=== PATIENT | female | born 2000 | race Caucasian/White ===

== ENCOUNTER 2022-03-27 08:37 | Inpatient (IN) | payer BC ==
--- OUTSIDE RECORDS SUMMARY | 2022-03-27 08:40 | XMS REPORT | Continuity of Care Document ---
:2000 Author Organization [facility] t Address [address] [place] [address] Care Team Providers Name Role Phone Pcp, Patient Does Not Have A Primary Care Physician [id number] VIRAJ ALFRED Attending Clinician Unavailable LAB90 Attending Clinician Unavailable RUKHSANA BERRY Attending Clinician Unavailable LILIANE CLEMONS Attending Clinician Unavailable Rukhsana Berry MD Attending Clinician [phone] Nurse, Adc Pob Immunization Attending Clinician Unavailable David Isidro DO Attending Clinician Only, Adc Pob2 Test Attending Clinician Unavailable DAVID ISIDRO Attending Clinician Unavailable CHAPARRITA MARNIQUEZ Attending Clinician Unavailable TIMOTEO BELL Attending Clinician Unavailable MARYAM DAVIS Attending Clinician Unavailable Payers Payer Name Policy Type Policy Number Effective Date Expiration Date S ro BCBS 2 [id number] 2021 00:00:00 Problems Condition Condition Condition Status Onset Resolution Last Treating Co mments Source Name Details Category Date Date Treatment Clinician Date Acquired Acquired Disease Active 2021-03 Kelse y hypothyroi hypothyroi 2-07 Se ybold dism dism 00:00: - 00 Externa l Class 1 Class 1 Disease Active Roseline obesity obesity 12-10 Seybold due to due to 00:00: - excess excess 00 Externa calories calories l without without serious serious comorbidit comorbidit y with y with body mass body mass index index (BMI) of (BMI) of 33.0 to 33.0 to 33.9 in 33.9 in adult adult Other Other Disease Active Roseline fatigue fatigue 12-10 Seybold 00:00: - 00 Externa l Well adult Well adult Disease Active K elsey exam exam 12-10 Seybold 00:00: - 00 Externa l Exercise Exercise Disease Active Kelse y induced induced 12-10 Seybold bronchospa bronchospa 00:00: - sm sm 00 Externa l No known No known Disease Kelse y active active Seybold problems problems Allergies, Adverse Reactions, Alerts Allergy Allergy Status Severity Reaction(s) Onset Inactive Treating Comm ents Source Name Type Date Date Clinician NO KNOWN Drug Active Univers ALLERGIE Class ity of S [facility] Social History Social Habit Start Date Stop Date Quantity Comments Source Exposure to Not sure Roseline mcdonnell SARS-CoV-2 (event) History SDOH Roseline rowell Alcohol Frequency - Exter nal History SDOH Roseline rowell Alcohol Std - External Drinks History SDOH Roseline rowell Alcohol Binge - External Alcohol intake 2022-02-23 2022-02-23 Current drinker of Ankit Tarango 00:00:00 00:00:00 alcohol (finding) - Exter nal Tobacco use and 2021-12-10 2021-12-10 Smokeless tobacco Ankit guerrapedro Guerraarlen exposure 00:00:00 00:00:00 non-user - External Alcohol Comment 2021-12-10 2021-12-10 occasionally Roseline Tarango 00:00:00 00:00:00 - External Education 2021-12-10 2021-12-10 16 Roseline Tarango 00:00:00 00:00:00 - External Sex [birth year] At [birth year] Roseline wadearlen 00:00:00 00:00:00 - External Smoking Status Start Date Stop Date Source Unknown if ever smoked [facility] Never smoked tobacco Roseline Seyb old - External Medications Ordered Filled Start Stop Current Ordering Indication Dosage Frequency Signature Comments Components Source Medication Medication Date Date Medication? Clinician (SIG) Name Name Levothyroxi Yes [id number] 50ug Take 1 Roseline ne Sodium 9-26 tablet (50 Seyb old 50 MCG oral 00:00: mcg total) - Tablet 00 by mouth Externa daily l Albuterol Yes [id number] 2{puff} Q.25D Inhale 2 Roseline HFA 108 (90 9-23 puffs into Se ybold Base) 00:00: the lungs - MCG/ACT IN 00 every 6 Ecd a AERS hours as l needed for wheezing Albuterol Yes [id number] 2{puff} Q.25D Inhale 2 Roseline HFA 108 (90 9-23 puffs into Se ybold Base) 00:00: the lungs - MCG/ACT IN 00 every 6 Ecd a AERS hours as l needed for wheezing Guaifenesin 2020- No [id number] 1200mg Take 2 Roseline (Mucinex) 07-15 tablets Seybol d 600 MG oral 00:00: 00:00 (1,200 mg Tablet 12 00 :00 total) by Hour mouth 2 Sustained times Release daily Benzonatate 2020- No [id number] 100mg Q.[id number] Take 1 Roseline (Tessalon 07-15- [id number] capsule ybarlen Bustamante) 100 00:00: 00:00 3D (100 mg MG oral 00 :00 total) by Capsule mouth 3 times daily as needed for cough Cetirizine 2020- No [id number] 10mg Take 1 Roseline (ZyrTEC 07-15 tablet (10 Seybo ld Allergy) 10 00:00: 00:00 mg total) MG oral 00 :00 by mouth Tablet daily methylPREDN 2020- No [id number] Take 1 kulwinder Roseline ISolone 4 07-15 by mouth Seybo ld MG oral 00:00: 00:00 See Admin Tablet 00 :00 Instructio Therapy ns Use as Pack directed Immunizations Ordered Immunization Filled Immunization Date Status Commen ts Source Name Name Influenza Virus 2021-12-03 Completed Roseline Arcos ybold - Vaccine, age 4 00:00:00 External months and up Influenza Virus 2021-12-03 Completed Roseline Arcos ybold - Vaccine, age 4 00:00:00 External months and up Covid-19 Vaccine 2020-12-15 Completed Roseline Zamorano eybold - (My Digital Life), Mrna-lnp, 00:00:00 Exter nal Nick Protein, Pf, 30mcg/0.3ml,IM Covid-19 Vaccine 2020-12-15 Completed Roseline S eybold - ([employer] Digital [employer]), Mrna-lnp, 00:00:00 Exter nal Nick Protein, Pf, 30mcg/0.3ml,IM Covid-19 Vaccine 2020-12-15 Completed Roseline Zamorano eybold (My Digital [employer]), Mrna-lnp, 00:00:00 Nick Protein, Pf, 30mcg/0.3ml,IM SARS-COV-2 COVID-19 2020-12-15 [facility] PFIZER VACCINE 00:00:00 [facility] Covid-19 Vaccine 2020-04-23 Completed Roseline Zamorano eybold - (My Digital Life), Mrna-lnp, 00:00:00 Exter nal Nick Protein, Pf, 30mcg/0.3ml,IM Covid-19 Vaccine 2020-04-23 Completed Roseline Zamorano eybold - (My Digital Life), Mrna-lnp, 00:00:00 Exter nal Nick Protein, Pf, 30mcg/0.3ml,IM Covid-19 Vaccine 2020-04-23 Completed Roseline S eybold (My Digital [employer]), Mrna-lnp, 00:00:00 Nick Protein, Pf, 30mcg/0.3ml,IM Covid-19 Vaccine 2020-04-23 Completed Roseline S eybold - (My Digital [employer]), Mrna-lnp, 00:00:00 Exter nal Nick Protein, Pf, 30mcg/0.3ml,IM Covid-19 Vaccine 2020-04-23 Completed Roseline S eybold ([employer] Digital [employer]), Mrna-lnp, 00:00:00 Nick Protein, Pf, 30mcg/0.3ml,IM Covid-19 Vaccine 2020-04-23 Completed Roseline vasquezbold - ([employer]), Mrna-lnp, 00:00:00 Exter nal Nick Protein, Pf, 30mcg/0.3ml,IM SARS-COV-2 COVID-19 2020-04-23 Completed Unive rsity of PFIZER VACCINE 00:00:00 [facility] SARS-COV-2 COVID-19 2020-04-23 Completed Unive rsity of PFIZER VACCINE 00:00:00 [facility] SARS-COV-2 COVID-19 2020-03-10 Completed Unive rsity of PFIZER VACCINE 00:00:00 [facility] SARS-COV-2 COVID-19 2020-03-10 Completed Unive rsity of PFIZER VACCINE 00:00:00 [facility] Covid-19 Vaccine 2020-03-10 Completed Roseline vasquezbold - ([employer] Digital [employer]), Mrna-lnp, 00:00:00 Exter nal Nick Protein, Pf, 30mcg/0.3ml,IM Covid-19 Vaccine 2020-03-10 Completed Roseline vasquezbold - ([employer] Digital [employer]), Mrna-lnp, 00:00:00 Exter nal Nick Protein, Pf, 30mcg/0.3ml,IM Covid-19 Vaccine 2020-03-10 Completed Roseline vasquezbold (Pfizer), Mrna-lnp, 00:00:00 Nick Protein, Pf, 30mcg/0.3ml,IM Covid-19 Vaccine 2020-03-10 Completed Roseline vasquezbold - (Pfizer), Mrna-lnp, 00:00:00 Exter nal Nick Protein, Pf, 30mcg/0.3ml,IM Covid-19 Vaccine 2020-03-10 Completed Roseline vasquezbold (Pfizer), Mrna-lnp, 00:00:00 Nick Protein, Pf, 30mcg/0.3ml,IM Covid-19 Vaccine 2020-03-10 Completed Roseline vasquezbold - (Pfizer), Mrna-lnp, 00:00:00 Exter nal Nick Protein, Pf, 30mcg/0.3ml,IM Hep A/ Hep B Combo 2018-07-16 Completed Roseline Tarango - 00:00:00 External Hep A/ Hep B Combo 2018-07-16 Completed Roseline Arcosybold 00:00:00 Hep A/ Hep B Combo 2018-07-16 Completed Roseline Arcosybold - 00:00:00 External Hep A/ Hep B Combo 2018-06-20 Completed Roseline Arcosybold - 00:00:00 External Hep A/ Hep B Combo 2018-06-20 Completed Roseline Arcosybold 00:00:00 Hep A/ Hep B Combo 2018-06-20 Completed Roseline Arcosybold - 00:00:00 External Tdap- (Boostrix, 2018-06-13 Completed Roseline vasquezbolelia - Adacel) 00:00:00 External Influenza Virus 2018-06-13 Completed Roseline brooks - Vaccine, No Preserv, 00:00:00 Exte rnal age 6 months and up Tdap- (Boostrix, 2018-06-13 Completed Roseline vasquezbold - Adacel) 00:00:00 External Influenza Virus 2018-06-13 Completed Roseline brooks Vaccine, No Preserv, 00:00:00 age 6 months and up Tdap- (Boostrix, 2018-06-13 Completed Roseline vasquezbolelia Adacel) 00:00:00 Influenza Virus 2018-06-13 Completed Roseline brooks - Vaccine, No Preserv, 00:00:00 Exte rnal age 6 months and up HPV 9 (Human 2017-05-17 Completed Roseline rowell - Papillomavirus) 00:00:00 External HPV 9 (Human 2017-05-17 Completed Roseline Muhammad ld - Papillomavirus) 00:00:00 External HPV 9 (Human 2017-05-17 Completed Roseline Muhammad ld Papillomavirus) 00:00:00 Influenza, Seasonal, 2017-04-10 Completed Denise ey Seybold - Injectable 00:00:00 External Influenza, Seasonal, 2017-04-10 Completed Dneise vasquez Seybold Injectable 00:00:00 Influenza, Seasonal, 2017-04-10 Completed Denise ey Seybold - Injectable 00:00:00 External Meningococcal 2016-02-17 Completed Roseline Guerra old - Vaccine- 00:00:00 External Conjugate(Menactra) HEPATITIS A- 2016-02-17 Completed Roseline Muhammad ld - PEDI/ADOL 00:00:00 External Meningococcal 2016-02-17 Completed Roseline Guerra old - Vaccine- 00:00:00 External Conjugate(Menactra) HEPATITIS A- 2016-02-17 Completed Roseline Muhammad ld PEDI/ADOL 00:00:00 Meningococcal 2016-02-17 Completed Roseline Guerra old Vaccine- 00:00:00 Conjugate(Menactra) HEPATITIS A- 2016-02-17 Completed Roseline Muhammad ld - PEDI/ADOL 00:00:00 External HPV 4 (Human 2015-07-23 Completed Roseline rowell - Papillomavirus) 00:00:00 External Meningococcal 2015-07-23 Completed Roseline Guerra old - Vaccine- 00:00:00 External Conjugate(Menactra) HPV 4 (Human 2015-07-23 Completed Roseline rowell - Papillomavirus) 00:00:00 External Meningococcal 2015-07-23 Completed Roseline Guerra old - Vaccine- 00:00:00 External Conjugate(Menactra) HPV 4 (Human 2015-07-23 Completed Roseline rowell Papillomavirus) 00:00:00 Meningococcal 2015-07-23 Completed Roseline Guerra old Vaccine- 00:00:00 Conjugate(Menactra) Meningococcal 2010-10-22 Completed Roseline Guerra old - Vaccine- 00:00:00 External Conjugate(Menactra) Tdap- (Boostrix, 2010-10-22 Completed Roseline vasquezbolelia - Adacel) 00:00:00 External Varicella Vaccine 2010-10-22 Completed Roseline Tarango - 00:00:00 External HEPATITIS A- 2010-10-22 Completed Roseline Muhammad ld - PEDI/ADOL 00:00:00 External Meningococcal 2010-10-22 Completed Roseline Guerra old - Vaccine- 00:00:00 External Conjugate(Menactra) Tdap- (Boostrix, 2010-10-22 Completed Roseline de la cruz - Adacel) 00:00:00 External Varicella Vaccine 2010-10-22 Completed Roseline Guerraold - 00:00:00 External HEPATITIS A- 2010-10-22 Completed Roseline Muhammad ld PEDI/ADOL 00:00:00 Meningococcal 2010-10-22 Completed Roseline Guerra old Vaccine- 00:00:00 Conjugate(Menactra) Tdap- (Boostrix, 2010-10-22 Completed Roseline de la cruz Adacel) 00:00:00 Varicella Vaccine 2010-10-22 Completed Roseline Tarango 00:00:00 HEPATITIS A- 2010-10-22 Completed Roseline Muhammad ld - PEDI/ADOL 00:00:00 External MMR- Measles, Mumps, 2002-11-06 Completed Denise Tarango - Rubella 00:00:00 External IPV- Inactivated 2002-11-06 Completed Roseline de la cruz - Polio Vaccine 00:00:00 External DTaP Unspecified 2002-11-06 Completed Roseline de la cruz - 00:00:00 External MMR- Measles, Mumps, 2002-11-06 Completed Denise Tarango - Rubella 00:00:00 External IPV- Inactivated 2002-11-06 Completed Roseline vasquezbold - Polio Vaccine 00:00:00 External DTaP Unspecified 2002-11-06 Completed Roseline de la cruz 00:00:00 MMR- Measles, Mumps, 2002-11-06 Completed Denise Tarango Rubella 00:00:00 IPV- Inactivated 2002-11-06 Completed Roseline vasquezbolelia Polio Vaccine 00:00:00 DTaP Unspecified 2002-11-06 Completed Roseline de la cruz - 00:00:00 External HIB- Haemophilus 2000-08-08 Completed Roseline vasquezbold - Influenzae Type B 00:00:00 Externa l DTaP Unspecified 2000-08-08 Completed oRseline de la cruz - 00:00:00 External HIB- Haemophilus 2000-08-08 Completed Roseline rosalesld - Influenzae Type B 00:00:00 Externa l DTaP Unspecified 2000-08-08 Completed Roseline de la cruz 00:00:00 HIB- Haemophilus 2000-08-08 Completed Roseline de la cruz Influenzae Type B 00:00:00 DTaP Unspecified 2000-08-08 Completed Roseline de la cruz - 00:00:00 External Hib (HbOC) 2000-01-13 Completed Roseline Tarango - 00:00:00 External Hib (HbOC) 2000-01-13 Completed Roseline Tarango - 00:00:00 External Hib (HbOC) 2000-01-13 Completed Roseline Tarango 00:00:00 MMR- Measles, Mumps, 1999-10-19 Completed Denise Tarango - Rubella 00:00:00 External IPV- Inactivated 1999-10-19 Completed Roseline vasquezbold - Polio Vaccine 00:00:00 External Varicella Vaccine 1999-10-19 Completed Roseline Tarango - 00:00:00 External MMR- Measles, Mumps, 1999-10-19 Completed Denise Tarango - Rubella 00:00:00 External IPV- Inactivated 1999-10-19 Completed Roseline vasquezbold - Polio Vaccine 00:00:00 External Varicella Vaccine 1999-10-19 Completed Roseline Tarango - 00:00:00 External MMR- Measles, Mumps, 1999-10-19 Completed Denise Tarango Rubella 00:00:00 IPV- Inactivated 1999-10-19 Completed Roseline vasquezbold Polio Vaccine 00:00:00 Varicella Vaccine 1999-10-19 Completed Roseline Tarango 00:00:00 Hepatitis B, 1999-07-13 Completed Roseline Muhammad ld - Adolescent Or 00:00:00 External Pediatric Hepatitis B, 1999-07-13 Completed Roseline rowell Adolescent Or 00:00:00 Pediatric Hepatitis B, 1999-07-13 Completed Roseline rowell - Adolescent Or 00:00:00 External Pediatric HIB- Haemophilus 1999-05-04 Completed Roseline rosalesld - Influenzae Type B 00:00:00 Externa l DTaP Unspecified 1999-05-04 Completed Roseline de la cruz - 00:00:00 External HIB- Haemophilus 1999-05-04 Completed Roseline vasquezbold - Influenzae Type B 00:00:00 Externa l DTaP Unspecified 1999-05-04 Completed Roseline de la cruz 00:00:00 HIB- Haemophilus 1999-05-04 Completed Roseline vasquezbolelia Influenzae Type B 00:00:00 DTaP Unspecified 1999-05-04 Completed Roseline de la cruz - 00:00:00 External Hib (HbOC) 1999-02-15 Completed Roseline Tarango - 00:00:00 External IPV- Inactivated 1999-02-15 Completed Roseline vasquezbold - Polio Vaccine 00:00:00 External DTP- 1999-02-15 Completed Roseline Tarango - Diphtheria,Tetanus,P 00:00:00 Exte rnal ertussis Hepatitis B, 1999-02-15 Completed Roseline rowell - Adolescent Or 00:00:00 External Pediatric Hib ([facility]) 1999-02-15 Completed Roseline Tarango - 00:00:00 External IPV- Inactivated 1999-02-15 Completed Roseline vasquezbold - Polio Vaccine 00:00:00 External DTP- 1999-02-15 Completed Roseline Tarango Diphtheria,Tetanus,P 00:00:00 ertussis Hepatitis B, 1999-02-15 Completed Roseline rowell Adolescent Or 00:00:00 Pediatric Hib ([facility]) 1999-02-15 Completed Roseline Tarango 00:00:00 IPV- Inactivated 1999-02-15 Completed Roseline Zamorano eybold Polio Vaccine 00:00:00 DTP- 1999-02-15 Completed Roseline Tarango - Diphtheria,Tetanus,P 00:00:00 Exte rnal ertussis Hepatitis B, 1999-02-15 Completed Roseline rowell - Adolescent Or 00:00:00 External Pediatric Hepatitis B, 2000 Completed Roseline rowell - Adolescent Or 00:00:00 External Pediatric Hib ([facility]) 2000 Completed Roseline Tarango - 00:00:00 External IPV- Inactivated 1998 Completed Roseline Zamorano eybold - Polio Vaccine 00:00:00 External DTP- 2000 Completed Roseline Tarango - Diphtheria,Tetanus,P 00:00:00 Exte rnal ertussis Hepatitis B, 2000 Completed Roseline rowell - Adolescent Or 00:00:00 External Pediatric Hib (HbOC) 2000 Completed Roseline Tarango - 00:00:00 External IPV- Inactivated 1998 Completed Roseline Zamorano eybold - Polio Vaccine 00:00:00 External DTP- 2000 Completed Roseline Tarango Diphtheria,Tetanus,P 00:00:00 ertussis Hepatitis B, 2000 Completed Roseline rowell Adolescent Or 00:00:00 Pediatric Hib (HbO) 2000 Completed Roseline Tarango 00:00:00 IPV- Inactivated 1998 Completed Roseline Zamorano eybold Polio Vaccine 00:00:00 DTP- 2000 Completed Roseline Arcosybold - Diphtheria,Tetanus,P 00:00:00 Exte rnal ertussis Vital Signs Vital Name Observation Time Observation Value Comments Source Systolic blood 2022-02-23 15:07:00 107 mm[Hg] Roseline Arcosybold - pressure External Diastolic blood 2022-02-23 15:07:00 69 mm[Hg] Yuliana y Seybold - pressure External Heart rate 2022-02-23 15:07:00 67 /min Roseline Zamorano eybold - External Body temperature 2022-02-23 15:07:00 36.28 Pallavi Denise ey Seybold - External Respiratory rate 2022-02-23 15:07:00 14 /min Denise vasquez Seybold - External Body height 2022-02-23 15:07:00 172.7 cm Roseline Zamorano eybold - External Body weight 2022-02-23 15:07:00 101.152 kg Roseline Zamorano eybold - External BMI 2022-02-23 15:07:00 33.91 kg/m2 Roseline vasquezbold - External Oxygen saturation in 2022-02-23 15:07:00 99 /min Roseline Arcosmauroarlen - Arterial blood by External Pulse oximetry Systolic blood 2021-12-10 14:05:00 114 mm[Hg] Roseline Arcosybold - pressure External Diastolic blood 2021-12-10 14:05:00 68 mm[Hg] Yuliana keys Seybold - pressure External Heart rate 2021-12-10 14:05:00 88 /min Roseline Zamorano eybold - External Body temperature 2021-12-10 14:05:00 36.39 Pallavi Denise vasquez Seybold - External Respiratory rate 2021-12-10 14:05:00 14 /min Denise vasquez Seybold - External Body height 2021-12-10 14:05:00 172.7 cm Roseline Zamorano eybold - External Body weight 2021-12-10 14:05:00 98.884 kg Roseline Zamorano eybold - External BMI 2021-12-10 14:05:00 33.15 kg/m2 Roseline Zamorano eybold - External Systolic blood 2021-02-23 19:55:00 120 mm[Hg] Roseline Tarango pressure Diastolic blood 2021-02-23 19:55:00 66 mm[Hg] Yuliana keys Seybold pressure Heart rate 2021-02-23 19:55:00 72 /min Rsoeline de la cruz Body temperature 2021-02-23 19:55:00 36.56 Pallavi Denise Tarango Respiratory rate 2021-02-23 19:55:00 12 /min Denise Tarango Body height 2021-02-23 19:55:00 172.7 cm Roseline de la cruz Body weight 2021-02-23 19:55:00 92.987 kg Roseline de la cruz BMI 2021-02-23 19:55:00 31.17 kg/m2 Roseline de lac ruz Procedures Procedure Date / Time Performed Performing Clinician [facility] e SARS-COV-2 COVID-19 2020-12-15 16:48:44 [facility],IM Name Medical Branch (PFIZER) COVID-19 (ID NOW 2020-11-12 20:58:00 David Isidro [facility] RAPID TESTING) Medical Branch Encounters Start End Encounter Admission Attending Care Care Encounter Source Date/Time Date/Time Type Type Clinicians Facility Department ID 2022-08-24 2022-08-24 Outpatient ROSELINE ALFRED [id number] Roseline 13:30:00 13:30:00 VIRAJ Seybol d 2022-03-25 2022-03-25 Outpatient ROSELINE ALFRED [id number] Roseline 00:00:00 00:00:00 VIRAJ Seybol d 2022-03-22 2022-03-22 Outpatient LAB90 ROSELINE SERNA [id number] Roseline 14:50:00 14:50:00 Seybol d 2022-03-22 2022-03-22 Outpatient ROSELINE BERRY [id number] Roseline 00:00:00 00:00:00 RUKHSANA Seybol d 2022-02-23 2022-02-23 Outpatient LAB90 ROSELINE SERNA [id number] Roseline 09:30:00 09:30:00 Seybol d 2022-02-23 2022-02-23 Outpatient PREROSELINE LUZSEY [id number] Roseline 09:00:00 09:00:00 VIRAJ Seybol d 2022-01-07 2022-01-07 Outpatient ROSELINE ALFRED ROSELINE [id number] Roseline 10:00:00 10:00:00 VIRAJ Seybol d 2021-12-22 2021-12-22 Outpatient PREZAJaun, ROSELINE ROSELINE [id number] Roseline 00:00:00 00:00:00 VIRAJ Seybol d 2021-12-13 2021-12-13 Outpatient PREZAROSELINE Zamorano ROSELINE [id number] Roseline 00:00:00 00:00:00 VIRAJ Seybol d 2021-12-10 2021-12-10 Outpatient LAB90 ROSELINE ROSELINE [id number] Roseline 10:00:00 10:00:00 Seybol d 2021-12-10 2021-12-10 Outpatient PREROSELINE LUZ ROSELINE [id number] Roseline 09:15:00 09:15:00 VIRAJ Seybol d 2021-12-09 2021-12-09 Outpatient LILIANE CLEMONS ROSELINE [id number] Roseline 16:15:00 16:15:00 Seybol d 2021-12-03 2021-12-03 Outpatient LILIANE CLEMONS ROSELINE [id number] Roseline 15:00:00 15:00:00 Seybol d 2021-02-23 2021-02-23 Outpatient LAB90 ROSELINE ROSELINE [id number] Roseline 15:15:00 15:15:00 Seybol d 2021-02-23 2021-02-23 Office Liliane Berry [id number] Roseline 14:00:00 15:00:00 Visit Rukhsana Gan [id number] Se todd Watts [id number] 2020-12-15 2020-12-15 Imm/Inj Nurse, Adc Pob Immunization [place] [id number] [facility] 11:44:52 11:45:02 Visit David Isidro [id number] ity [facility] [phone] Me dical nal 421 [facility] 2020-12-15 2020-12-15 Outpatient [facility] [id number] Univers 11:40:00 11:40:00 ity [facility] 2020-11-12 2020-11-12 Laboratory Only, Adc Pob2 Test [facility] [id number] Univers 15:51:48 16:05:24 Only David Isidro [id number] ity [facility] [id number] [phone] Al dical nal 225 [facility] 2020-11-12 2020-11-12 Outpatient R DWAINE [facility] [id number] Univers 16:00:00 16:00:00 DAVID ity [facility] 2020-06-19 2020-06-19 Outpatient R [facility] [id number] Univers 08:00:00 08:00:00 MINERVA, ity [facility] 2020-06-19 2020-06-19 Outpatient R [facility] EHA [id number] Univers 00:00:00 00:00:00 MINERVA, ity [facility] 2020-06-10 2020-06-10 Outpatient R [facility] EHS [id number] Univers 00:00:00 00:00:00 MINERVA, ity [facility] 2020-04-23 2020-04-23 Outpatient R RAY [facility] [id number] Univers 07:20:00 07:20:00 TIMOTEO ity [facility] 2020-04-08 2020-04-08 Outpatient Beulah DAVIS [facility] [id number] Univers 07:15:00 07:15:00 MARYAM ity [facility] 2020-03-31 2020-03-31 [facility] [id number] Univers 07:50:00 07:50:00 TIMOTEO ity [facility] 2020-03-10 2020-03-10 Outpatient R RAY [facility] [id number] Univers 07:30:00 07:30:00 TIMOTEO [facility] Results Test Description Test Time Test Comments Results Result Comments Source COVID-19 (ID NOW RAPID TESTING) 2020-11-12 21:20:27 Test Item Value Reference Range Interpretation Comme nts SARS-CoV-2 Rapid ID NOW (test code = 76758-9) Positive Not Dete cted A ANAND (test code = ANAND) Lab Interpretation (test code = 48739-0) Abnormal [facility]
[2022-03-27 09:03] LABS: Absolute Lymphocytes (CBC) 2.2 K/uL (0.7-4.9); Hematocrit 41.1 % (36.0-45.0); Lymphocytes % 30.7 % (15.3-44.8); MCV 92.1 fL (80-100); MPV 8.6 fL (7.6-11.3); RBC Red Blood Cell Count 4.46 M/uL (3.86-4.86)
--- NOTE | 2022-03-27 09:15 | RAD REPORT ---
EXAM DESCRIPTION: RAD - Chest Single View - 03/27/2022 9:05 am CLINICAL HISTORY: CHEST PAIN Chest pain. COMPARISON: No comparisons FINDINGS: Portable technique limits examination quality. Interstitial markings are mildly prominent which may represent interstitial pneumonitis or mild inter stitial pulmonary edema. The heart is normal in size. No displaced fractures.
[2022-03-27 09:18] LABS: Potassium 3.3 mmol/L (3.5-5.1)
[2022-03-27] MEDS ORDERED: KETOROLAC 30 MG/ML INJ ONE (09:18)
[2022-03-27 09:27] LABS: Troponin High Sensitivity 405.9 pg/mL (<58.9)
[2022-03-27 09:49] LABS: SARS-COV-2 RT PCR NEGATIVE (NEGATIVE)
--- NOTE | 2022-03-27 10:27 | RAD REPORT ---
EXAM DESCRIPTION: CT - Chest For Pe Angio - 03/27/2022 10:07 am CLINICAL HISTORY: Chest pain. chest pain COMPARISON: Chest Single View dated 03/27/2022 TECHNIQUE: CT angiogram of the pulmonary arteries was performed with MIP. All CT scans are performed using dose optimization technique as appropriate and may include automated exposure control or mA/KV adjustment according to patient size. FINDINGS: No evidence of pulmonary thromboembolism. No acute aortic finding demonstrated. Diffusely prominent ground-glass appearance to both lungs. There are several somewhat ill-defined are as of large nodule formation seen in both lungs. For example superior segment right lower lobe anteri wallace 20 mm, right upper lobe 14 mm, and anterior left upper lobe measuring 16 mm and 8 mm. No significant pericardial or pleural fluid. No concerning bony finding. IMPRESSION: No evidence of pulmonary thromboembolism. Ground-glass appearance to both lungs diffusely with bilateral areas of ill-defined large nodularity as detailed. Findings are nonspecific but favored to be related to infection or possibly underlying c onnective tissue disorder. Neoplastic/ metastatic etiology not completely ruled out of would be unusu al in this age group.
--- NOTE | 2022-03-27 10:49 | P.HP ---
Certification for Inpatient Patient admitted to: Observation Patient will require the following post-hospital care: None Practitioner: I am a practitioner with admitting privileges, knowledge of patient current condition, hospital course, and medical plan of care. Services: Services provided to patient in accordance with Admission requirements found in Title 42 Section 412.3 of the Code of Federal Regulations Patient History Date of Service: 03/27/22 Primary Care Provider: Dr. Beltran History of Present Illness: Ms. Patel is a healthy 21yo female who was evaluated in the [facility] ED this am for inspiratory left sided chest pain with radiation to left back. History of vaping. Pt's boyfriend has had a febrile illness x 6 days and was negative for flu/covid. Ms. Patel has been afebrile, denies SOB, but states when she is resting her chest feels tight. Pt noted to be more comfortable post Ketorolac in ED but continues to prefer sitting up to supine, continued concern for pericarditis. Pt received [employer] CoVid vaccine x 2 and received booster. Physical Examination - Studies Laboratory Data (last 24 hrs) 03/27/22 08:50: WBC 7.30, Hgb 13.9, Hct 41.1, Plt Count 246 03/27/22 08:50: Sodium 139, Potassium 3.3 L, BUN 12, Creatinine 0.80, Glucose 103 Assessment and Plan - Advance Directives Does patient have a Living Will: No Does patient have a Durable POA for Healthcare: No
--- NOTE | 2022-03-27 11:01 | ER ---
Nurse's Notes [facility] Name: Judi Patel Age: 21 yrs Sex: Female : 2000 Arrival Date: 03/27/2022 Time: 08:38 Bed 6 Private MD: Dimas Beltran Diagnosis: Acute interstitial pneumonitis;Elevated troponin;Chest pain, unspecified Presentation: 03/27 08:44 Chief complaint: Sharp left sided chest pain that radiates to back upon waking today. hb Coronavirus screen: At this time, the client does not indicate any symptoms associated with coronavirus-19. Ebola Screen: No symptoms or risks identified at this time. Initial Sepsis Screen: Does the patient meet any 2 criteria? No. Patient's initial sepsis screen is negative. Does the patient have a suspected source of infection? No. Patient's initial sepsis screen is negative. Risk Assessment: Do you want to hurt yourself or someone else? Patient reports no desire to harm self or others. Onset of symptoms was March 27, 2022. 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 - Social history:: Smoking status: Patient denies any tobacco usage or history of. - Family history:: not pertinent. - Hospitalizations: : No recent hospitalization is reported. Screenin:49 [facility] ED Fall Risk Assessment (Adult) History of falling in the last 3 months, kc6 including since admission No falls in past 3 months (0 pts) Confusion or Disorientation No (0 pts) Intoxicated or Sedated No (0 pts) Impaired Gait No (0 pts) Mobility Assist Device Used No (0 pt) Altered Elimination No (0 pt) Score/Fall Risk Level 0 - 2 = Low Risk Oriented to surroundings, Maintained a safe environment, Educated pt \T\ family on fall prevention, incl call for assistance when getting out of bed, Assessed \T\ reinforced patient's understanding of fall precautions, Hourly rounding (assess needs \T\ fall precautionary measures) done. Abuse screen: Denies threats or abuse. Denies injuries from another. Nutritional screening: No deficits noted. Tuberculosis screening: No symptoms or risk factors identified. Assessment: 08:47 General: Appears in no apparent distress. comfortable, Behavior is calm, cooperative, kc6 appropriate for age. Pain: Complains of pain in anterior aspect of left upper chest and left breast Pain radiates to left scapular area and left subscapular area Pain currently is 7 out of 10 on a pain scale. Quality of pain is described as sharp, Pain began 1 hour ago. Is continuous, Alleviated by nothing. Aggravated by increased activity, Also complains of no other associated symptoms. Neuro: Gray Agitation-Sedation Scale (RASS): 0 - Alert and Calm Level of Consciousness is awake, alert, obeys commands, Oriented to person, place, time, situation, Appropriate for age. Cardiovascular: Denies nausea, shortness of breath, vomiting, Heart tones S1 S2 present Capillary refill < 3 seconds Rhythm is sinus tachycardia. Respiratory: Airway is patent Trachea midline Respiratory effort is even, unlabored, Respiratory pattern is regular, symmetrical, Breath sounds are clear bilaterally. GI: No signs and/or symptoms were reported involving the gastrointestinal system. : No signs and/or symptoms were reported regarding the genitourinary system. EENT: No signs and/or symptoms were reported regarding the EENT system. Derm: No signs and/or symptoms reported regarding the dermatologic system. Skin is intact, Skin is pink, warm \T\ dry. Musculoskeletal: No signs and/or symptoms reported regarding the musculoskeletal system. Circulation, motion, and sensation intact. Capillary refill < 3 seconds, Range of motion: intact in all extremities. 09:42 Reassessment: Patient appears in no apparent distress at this time. No changes from kc6 previously documented assessment. Patient and/or family updated on plan of care and expected duration. Pain level reassessed. Patient is alert, oriented x 3, equal unlabored respirations, skin warm/dry/pink. client stated her pain has decreased from a 7/10 a 5/10. Patient states feeling better. Patient states symptoms have improved. 10:57 Reassessment: Patient appears in no apparent distress at this time. No changes from kc6 previously documented assessment. Patient and/or family updated on plan of care and expected duration. Pain level reassessed. Patient is alert, oriented x 3, equal unlabored respirations, skin warm/dry/pink. client stated her pain is a 3/10 Patient states feeling better. Patient states symptoms have improved. 11:57 Reassessment: Patient appears in no apparent distress at this time. No changes from kc6 previously documented assessment. Patient and/or family updated on plan of care and expected duration. Pain level reassessed. Patient is alert, oriented x 3, equal unlabored respirations, skin warm/dry/pink. 12:57 Reassessment: Patient appears in no apparent distress at this time. No changes from kc6 previously documented assessment. Patient and/or family updated on plan of care and expected duration. Pain level reassessed. Patient is alert, oriented x 3, equal unlabored respirations, skin warm/dry/pink. Vital Signs: 08:44 BP 137 / 88; Pulse 104; Resp 16; Temp 98.3; Pulse Ox 100% on R/A; Weight 99.79 kg (R); hb Height 5 ft. 7 in. (170.18 cm); Pain 10/10; 09:42 BP 111 / 73; Pulse 87; Resp 20 S; Pulse Ox 96% on R/A; Pain 5/10; kc6 10:57 BP 112 / 81; Pulse 86; Resp 12 S; Pulse Ox 100% on R/A; Pain 3/10; kc6 13:14 BP 122 / 74; Pulse 86; Resp 16 S; Pulse Ox 98% on R/A; Pain 5/10; kc6 08:44 Body Mass Index 34.46 (99.79 kg, 170.18 cm) hb ED Course: 08:38 Patient arrived in ED. am2 08:38 Dimas Beltran DO is Private Physician. am2 08:39 Alok Berman MD is Attending Physician. rn 08:44 Marline Cota, AUGUST is Primary Nurse. kc6 08:45 Triage completed. hb 08:45 Arm band placed on. hb 08:50 Patient has correct armband on for positive identification. Placed in gown. Bed in low kc6 position. Call light in reach. Side rails up X2. Adult w/ patient. Client placed on continuous cardiac and pulse oximetry monitoring. NIBP monitoring applied. pvc monitor on. 08:50 Patient maintains SpO2 saturation greater than 95% on room air. kc6 08:50 Initial lab(s) drawn, by me, sent to lab. Inserted saline lock: 20 gauge in left vg1 antecubital area, using aseptic technique. Blood collected. 08:53 Warm blanket given. mm9 08:53 EKG done, by ED staff, reviewed by Alok Berman MD. mm9 08:58 COVID-19/FLU A+B Sent. kc6 09:07 XRAY Chest (1 view) In Process Unspecified. EDMS 09:14 Lab(s) recollected, by me, sent to lab. vg1 09:28 Notified ED physician of a critical lab result(s). Troponin 405.9. aa5 09:54 Primary Nurse role handed off by Marline Cota, RN kc6 09:55 Marline Cota, RN is Primary Nurse. kc6 10:09 CT Chest For PE Angio In Process Unspecified. EDMS 10:57 Lactate w/ 2H reflex if indic. Sent. kc6 10:58 Inserted saline lock: 20 gauge in right antecubital area, using aseptic technique. kc6 Blood collected. 11:01 Wes Berman MD is Hospitalizing Provider. rn 11:29 Blood Culture Adult (2) Sent. kc6 13:15 No provider procedures requiring assistance completed. Patient admitted, IV remains in kc6 place. Administered Medications: 09:19 Drug: Ketorolac 30 mg Route: IVP; Site: left antecubital; kc6 09:58 Follow up: Response: No adverse reaction; Pain is decreased; RASS: Alert and Calm (0) kc6 11:03 Drug: Aspirin 325 mg Route: PO; kc6 13:13 Follow up: Response: No adverse reaction kc6 11:43 Drug: Rocephin (cefTRIAXone) 1 grams Route: IV; Rate: calculated rate; Site: left kc6 antecubital; 13:13 Follow up: Response: No adverse reaction; IV Status: Completed infusion; IV Intake: [id number] 11:43 Drug: Zithromax (azithromycin) 500 mg Route: IVPB; Infused Over: 1 hrs; Site: right kc6 antecubital; 13:13 Follow up: Response: No adverse reaction; IV Status: Completed infusion; IV Intake: kc6 250ml Medication: 09:07 VIS not applicable for this client. kc6 Intake: 13:13 IV: 250ml; Total: 250ml. kc6 13:13 IV: 10ml; Total: 260ml. kc6 Outcome: 11:01 Decision to Hospitalize by Provider. rn 13:16 Admitted to Med/surg accompanied by tech, via wheelchair, room 429, with chart, Report kc6 called to Kayley soni RN 13:16 Condition: stable 13:16 Instructed on the need for admit. 13:56 Patient left the ED. kc6 Signatures: Dispatcher [employer] EDMS Alok Berman MD MD rn Calderon, Audri, RN RN aa5 Rosa Guerrero RN RN Judi Silva Victoria, RN RN vg1 Marline Cota RN RN bc6 Teresa Rangel mm9 Corrections: (The following items were deleted from the chart) 09:08 09:07 No provider procedures requiring assistance completed. kc6 kc6 09:08 09:07 Patient did not have IV access during this emergency room visit. kc6 kc6 09:08 09:07 Condition: stable kc6 kc6 09:08 09:07 Discharged to longterm. kc6 kc6 09:08 09:07 Discharge instructions given to patient, Instructed on discharge instructions, kc6 follow up and referral plans. medication usage, Demonstrated understanding of instructions, follow-up care, medications, Prescriptions given X 1, kc6
--- NOTE | 2022-03-27 11:02 | EDPHYS ---
[facility] Name: Judi Patel Age: 21 yrs Sex: Female : 2000 Arrival Date: 03/27/2022 Time: 08:38 Bed 6 Private MD: Dimas Beltran ED Physician Alok Berman HPI: 03/27 10:05 This 21 yrs old Female presents to ER via Ambulatory with complaints of Chest Pain, rn Back Pain. 10:05 The patient or guardian reports chest pain that is located primarily in the anterior rn chest wall, left. The pain radiates to back. Associated signs and symptoms: Pertinent negatives: abdominal pain, near syncope, palpitations, syncope, vomiting. The chest pain is described as sharp, stabbing. Duration: The patient or guardian reports multiple episodes, that are intermittent. Modifying factors: The symptoms are alleviated by nothing. the symptoms are aggravated by deep breath. Severity of pain: At its worst the pain was moderate in the emergency department the pain has improved. The patient has not experienced similar symptoms in the past. The patient has not recently seen a physician. Pt reports chest pain, left side, radiates to back, sharp/stabbing, worse with deep inspiration. NO cough/fever. No hx of dvt/PE. No abd pain. + vapes and last vaped last night.. 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 - Social history:: Smoking status: Patient denies any tobacco usage or history of. - Family history:: not pertinent. - Hospitalizations: : No recent hospitalization is reported. ROS: 10:05 Constitutional: Negative for fever, chills, and weight loss, Eyes: Negative for injury, rn pain, redness, and discharge, Cardiovascular: Negative for palpitations, and edema Respiratory: Negative for shortness of breath, cough, wheezing Abdomen/GI: Negative for abdominal pain, nausea, vomiting, diarrhea, and constipation, Back: Negative for injury MS/Extremity: Negative for injury and deformity, Skin: Negative for injury, rash, and discoloration, Neuro: Negative for headache, weakness, numbness, tingling, and seizure. Exam: 10:05 Constitutional: This is a well developed, well nourished patient who is awake, alert, rn and in no acute distress. Head/Face: Normocephalic, atraumatic. Cardiovascular: Regular rate and rhythm. No pulse deficits. Respiratory: No increased work of breathing, no retractions or nasal flaring. Abdomen/GI: Soft, non-tender Skin: Warm, dry MS/ Extremity: Pulses equal, no cyanosis. Neuro: Awake and alert, GCS 15 12:07 ECG was reviewed by the Attending Physician. rn Vital Signs: 08:44 BP 137 / 88; Pulse 104; Resp 16; Temp 98.3; Pulse Ox 100% on R/A; Weight 99.79 kg (R); hb Height 5 ft. 7 in. (170.18 cm); Pain 10/10; 09:42 BP 111 / 73; Pulse 87; Resp 20 S; Pulse Ox 96% on R/A; Pain 5/10; kc6 10:57 BP 112 / 81; Pulse 86; Resp 12 S; Pulse Ox 100% on R/A; Pain 3/10; kc6 13:14 BP 122 / 74; Pulse 86; Resp 16 S; Pulse Ox 98% on R/A; Pain 5/10; kc6 08:44 Body Mass Index 34.46 (99.79 kg, 170.18 cm) hb MDM: 08:39 Patient medically screened. rn 10:56 Differential diagnosis: acute myocardial infarction, acute pericarditis, chest wall rn pain, costochondritis, esophagitis, gastritis, gastroesophageal reflux disease (GERD), myocarditis, pancreatitis, peptic ulcer disease, pericarditis, pleurisy, pneumonia, pneumothorax, pulmonary embolus. HEART Score: History: Slightly Suspicious (0), ECG: Normal (0), Age: < or = 45 years (0), Risk Factors: No Risk Factors Known (0), Troponin: > 1 and < 3 x normal limit (1), Total Score = 1. The patient's pulmonary embolism risk score was calculated as follows: the patients heart rate is greater than 100 beats per minute (1.5 Pts) Total Score: 0-2 points. This patient was found to be at low risk for a pulmonary embolism by using the Well's assessment criteria. Data reviewed: vital signs, nurses notes, lab test result(s), EKG, radiologic studies, CT scan. Test interpretation: by ED physician or midlevel provider: ECG, plain radiologic studies, Independent interpretation of xray by me: Possible atypical pneumonia vs pneumonitis. Counseling: I had a detailed discussion with the patient and/or guardian regarding: the historical points, exam findings, and any diagnostic results supporting the discharge/admit diagnosis, lab results, radiology results, the need for further work-up and treatment in the hospital. Response to treatment: the patient's symptoms have markedly improved after treatment, and as a result, I will admit patient. Admission orders: after a detailed discussion of the patient's condition and case, the admit orders are written by me. ED course: Pt with unexpected elevated troponin. CT PE obtained that shows possible pneumonitis, but neg for PE. Pt doesn't appear toxic to indicated myocarditis, normal BP as well. ECG without signs of pericarditis or ischemia. + famhx of sudden and cardiac problems, but none at a young age. Most likely infectious etiology with secondary effects on heart, but discussed case with hospitalist group and will admit for further w/u. Blood cultures ordered and abx ordered. Lactate ordered. . 03/27 08:47 Order name: Basic Metabolic Panel; Complete Time: 09:28 rn 03/27 11:01 Interpretation: Normal except: K 3.3. rn 03/27 08:47 Order name: CBC with Diff; Complete Time: 09:14 rn 03/27 11:01 Interpretation: Within normal limits. 03/27 08:47 Order name: D-Dimer; Complete Time: 09:51 rn 03/27 11:02 Interpretation: Within normal limits. 03/27 08:47 Order name: NT PRO-BNP; Complete Time: 09:28 rn 03/27 11:02 Interpretation: Within normal limits. 03/27 08:47 Order name: Troponin HS; Complete Time: 09:28 rn 03/27 11:02 Interpretation: Abnormal. rn 03/27 08:47 Order name: COVID-19/FLU A+B; Complete Time: 09:51 rn 03/27 08:47 Order name: XRAY Chest (1 view); Complete Time: 09:17 rn 03/27 11:02 Interpretation: Abnormal. 03/27 09:29 Order name: CT Chest For PE Angio; Complete Time: 10:31 rn 03/27 10:20 Order name: SARS RAPID; Complete Time: 11:01 snw 03/27 10:35 Order name: Blood Culture Adult (2) rn 03/27 10:35 Order name: Lactate w/ 2H reflex if indic.; Complete Time: 13:25 rn 03/27 12:42 Order name: NT PRO-BNP; Complete Time: 13:25 EDMS 03/27 12:42 Order name: Thyroid Stimulating Hormone; Complete Time: 13:25 EDMS 03/27 08:47 Order name: EKG; Complete Time: 08:48 rn 03/27 08:47 Order name: Cardiac monitoring; Complete Time: 08:49 rn 03/27 08:47 Order name: EKG - Nurse/Tech; Complete Time: 08:49 rn 03/27 08:47 Order name: IV Saline Lock; Complete Time: 08:58 rn 03/27 08:47 Order name: Labs collected and sent; Complete Time: 08:58 rn 03/27 08:47 Order name: O2 Per Protocol; Complete Time: 08:49 rn 03/27 08:47 Order name: O2 Sat Monitoring; Complete Time: 08:49 rn 03/27 09:05 Order name: Labs - recollect needed: recollect blue toop/ not filled enough / q\T\s; eb Complete Time: 09:13 03/27 12:03 Order name: CONS Physician Consult EDMS EC:07 Rate is 91 beats/min. Rhythm is regular. QRS [place] is Normal. QRS interval is normal. QT rn interval is normal. No Q waves. T waves are Normal. No ST changes noted. Clinical impression: NSR w/ Non-specific ST/T Changes. Interpreted by me. Reviewed by me. Administered Medications: 09:19 Drug: Ketorolac 30 mg Route: IVP; Site: left antecubital; kc6 09:58 Follow up: Response: No adverse reaction; Pain is decreased; RASS: Alert and Calm (0) kc6 11:03 Drug: Aspirin 325 mg Route: PO; kc6 13:13 Follow up: Response: No adverse reaction kc6 11:43 Drug: Rocephin (cefTRIAXone) 1 grams Route: IV; Rate: calculated rate; Site: left kc6 antecubital; 13:13 Follow up: Response: No adverse reaction; IV Status: Completed infusion; IV Intake: [id number] 11:43 Drug: Zithromax (azithromycin) 500 mg Route: IVPB; Infused Over: 1 hrs; Site: right kc6 antecubital; 13:13 Follow up: Response: No adverse reaction; IV Status: Completed infusion; IV Intake: kc6 250ml Disposition Summary: 03/27/22 11:01 Hospitalization Ordered Hospitalization Status: Observation rn Provider: Wes Berman rn Location: Telemetry/MedSurg (observation) rn Condition: Stable rn Problem: new rn Symptoms: have improved rn Bed/Room Type: Standard rn Room Assignment: 429(03/27/22 12:41) aa5 Diagnosis - Acute interstitial pneumonitis rn - Elevated troponin rn - Chest pain, unspecified rn Forms: - Medication Reconciliation Form rn - SBAR form rn Signatures: Dispatcher [employer] EDMS Mónica Artis, LAN MANAGER-C LAN MANAGER-Csnw Alok Berman MD MD rn Calderon, Audri, RN RN aa5 Rosa Guerrero, RN Melody Wallace Kaitlyn RN RN kc6 Corrections: (The following items were deleted from the chart) 11:02 11:02 No acute disease. rn rn 12:41 11:01 rn aa5
[2022-03-27] MEDS ORDERED: ASPIRIN 325 MG TAB ONE (11:03)
[2022-03-27] MEDS ORDERED: CEFTRIAXONE 1000 MG/VIAL ONE (11:33)
[2022-03-27] MEDS ORDERED: NA CHLORIDE 0.9% 250 ML ONE (11:34)
[2022-03-27] MEDS ORDERED: AZITHROMYCIN 500 MG INJ IVPB ONE (11:34)
[2022-03-27] MEDS ORDERED: ALPRAZOLAM 0.25 MG TABLET PO PRN (12:01)
--- NOTE | 2022-03-27 12:22 | P.PN ---
Date of Service: 03/27/22 (Pt rec'd Pfizer Covid vax 03/08; 05/09 and booster 12/08)
[2022-03-27 12:41] LABS: Thyroid Stimulating Hormone 1.68 uIU/mL (0.358-3.740)
[2022-03-27] MEDS: NA CHLORIDE 0.9% 1,000 ML IV SCH ×2 (14:40→23:41)
[2022-03-27] MEDS: HYDROCODONE/APAP 5/325 MG TAB PO PRN (14:40)
[2022-03-27 17:40] VITALS: BMI 34.2
[2022-03-27 17:49] LABS: Ferritin 23.6 ng/mL (8-388)
[2022-03-27 19:03] LABS: Thyroid Stimulating Hormone 1.1 uIU/mL (0.358-3.740)
[2022-03-27] MEDS ORDERED: KETOROLAC 30 MG/ML INJ IV ONE (20:11)
--- NOTE | 2022-03-27 20:34 | CON ---
Date of Consultation: 03/27/2022 Reason For Consultation: Elevated troponin and chest pain. History Of Present Illness: This is a 21-year-old female who comes in with chest pain that starts in the back and goes all the way to the front, sharp, and is constant since yesterday. The pain gets b chung by leaning forward and increases with taking a deep breath. She has no shortness of breath and no known history of medical issues. This is a young 21-year-old without any medical problems except hypothyroidism for which she is on treatment. The patient denies having any recent upper respirator y tract infection symptoms. Does not have any shortness of breath or lower extremity edema. Past Medical History: Hypothyroidism. Medications: Refer to reconciliation sheet for detailed list. Allergies: NO KNOWN DRUG ALLERGIES. Family History: No premature coronary artery disease or cancer. Social History: She does not smoke or drink. Does not use any drugs. Review of Systems: All systems reviewed and they were negative except for mentioned in HPI. Physical Examination: Vital Signs: Temperature is 97.6, pulse 83, breathing at 18, blood pressure 123/68, and saturating 9 8% on room air. General: A pleasant young female, no apparent distress. Head and Neck: Pupils are equal and reactive to light. Intact eye movements. No JVD. No cervical lymphadenopathy. Neck is supple. Thyroid is not enlarged. Lungs: Clear to auscultation bilaterally. No rhonchi, wheezing, or crackles. No accessory muscle u se. Heart: Regular rate and rhythm. No extra sounds. Abdomen: Soft, nontender. Bowel sounds positive. No organomegaly. No masses or hernia. No rigidi ty or rebound. Extremities: No edema, clubbing, or cyanosis. Intact pulses. Skin: No rashes. Neurologic: Alert, awake, and oriented x3. No acute focal deficits appreciated. Lymph Nodes: No cervical or axillary lymphadenopathy. Investigations: BUN is 12, creatinine 0.8, and her troponin is 405, but NT-proBNP is normal. TSH is 1.68. White blood count 7.3 and hemoglobin 13.9. She had a CTA of the chest. There is no PE, but there is ground-glass appearance favoring infection. Assessment And Recommendation: 1.Chest pain with elevated troponin. This is very unlikely to be acute coronary syndrome; however, trend troponin and based on the second set, we will decide whether we need anticoagulation to be star manny. Continue aspirin and the differential diagnosis of course is pericarditis or myocarditis. Obta in echocardiogram in the morning and further recommendations accordingly. Await on the results of CR P and please also check the ESR. 2.Hypokalemia. Replace potassium, re-evaluate. 3.Abnormal CT scan findings suggestive of pneumonitis. It could be also a cause of the mild troponi n leak. She could have an infectious process or viral illness that caused the troponin leak as well. SR/MODL Voice ID: [id number] Report ID: [id number]
[2022-03-28] MEDS: HYDROCODONE/APAP 5/325 MG TAB PO PRN ×2 (04:08→10:17)
[2022-03-28 04:37] LABS: Magnesium 1.9 mg/dL (1.6-2.4)
[2022-03-28 04:41] LABS: Troponin High Sensitivity 417.5 pg/mL (<58.9)
--- NOTE | 2022-03-28 07:03 | P.PN ---
Date of Service: 03/28/22 Subjective: feeling better toradol helped more than opioids no new/worsening symptoms ROS: 10 point ROS as noted above, otherwise negative Physical exam GEN: Alert, oriented, NAD HEENT: Normal conjunctiva, sclera anicteric CV: Regular rate and rhythm, no edema Pulm: Nonlabored respirations on room air ABD: Soft, nontender, nondistended Neuro: Normal speech, normal affect 21yo F, PMH: hypothyroidism. Presented with L chest pain, radiates to back. paula p in nature, worsened with inspiration, laying flat. Partially relieved with sitting up/forward. No recent infection, fever/chills. Her boyfriend has had a week of fever and upper respiratory symptoms. COVID/Flu negative. Problem List Chest pain NSTEMI, suspect type II Hypothyroidism trop elevated, initially downtrended, now trending up again EKG without acute changes, no ST-t wave abnormalities repeat EKG this morning less consistent with ACS, more likely pericarditis - no EKG changes, no obvious pericardial effusion seen on CT cardio consulted minimize NSAIDs for now, while ruling out ACS; norco and morphine for pain pt reports toradol relieve pain temporarily, norco much less effective aspirin, colchicine, ibuprofen once ACS ruled out echo GGOs / small pulm nodules seen on CT nonspecific possibly infectious vs inflammatory / connective tissue disorder patient vapes - but reports minimal use - 1 cartridge / vape pen can last a year or so Dispo: home, likely tomorrow Time Spent Managing Pts Care (In Minutes): 35
[2022-03-28] MEDS ORDERED: MORPHINE 4 MG/ML SYR IV PRN (07:10)
--- NOTE | 2022-03-28 08:53 | P.HP ---
Date of Service: 03/27/22 Patient History Date of Service: 03/27/22 Primary Care Provider: Dr. Beltran Reason for admission: Chest pain, pneumonitis History of Present Illness: Ms. Patel is a 21 yo female with no significant medical history that awoke this am with left chest pain with radiation to back. Chest pain is sharp in nature upon inspiration. Pt is afebrile, denies cough. Ms. Patel's boyfriend has had a 6 days history of fever and was negative for flu/covid. She states her pain is improved s/p Ketorolac but she continues to prefer sitting position. Allergies No Known Allergies Allergy (Unverified 03/27/22 11:02) Home medications list reviewed: Yes Home Medications: Levothyroxine [Synthroid*] 0.05 mg PO DAILY 03/27/22 - Past Medical/Surgical History Has patient received pneumonia vaccine in the past: No Diabetic: No -: hypothyroid Past Surgical History: Patient denies surgical history - Family History Mother -: Heart disease (Widowmaker in early 40s) - Social History Smoking Status: Current some day smoker Counseled patient to stop smoking for: less than 10 minutes Smoking therapy provided: (vapes occasionally) Alcohol use: Yes CD- Drugs: No Caffeine use: Yes Place of Residence: Home (with Mom) Domestic Violence: Negative screening Review of Systems General: Unremarkable Eyes: Unremarkable ENT: Unremarkable Respiratory: Pleuritic Pain Cardiovascular: Chest Pain Gastrointestinal: Unremarkable Genitourinary: Unremarkable Musculoskeletal: Unremarkable Integumentary: Unremarkable Neurological: Unremarkable Lymphatics: Unremarkable Physical Examination - Vital Signs Temperature: 98.6 F Blood Pressure: 112/81 Pulse: 112 Respirations: 23 Pulse Ox (%): 93 (range 92-100% in ED) - Physical Exam General: Alert, Oriented x3, Cooperative HEENT: Atraumatic, Normocephalic, PERRLA Neck: Supple, 2+ carotid pulse no bruit, JVD not distended Respiratory: Clear to auscultation bilaterally, Normal air movement Cardiovascular: No edema, Normal pulses, Regular rate/rhythm Capillary refill: <2 Seconds Gastrointestinal: Normal bowel sounds, No tenderness Musculoskeletal: No clubbing, No swelling Integumentary: No rashes, No breakdown Neurological: Normal gait, Normal speech Lymphatics: No axilla or inguinal lymphadenopathy, Axilla lymphadenopathy External genitalia: Deferred Rectal: Deferred Assessment and Plan - Problems (Diagnosis) (1) Pleuritic chest pain Status: Acute Plan: Position of comfort, ASA 325mg daily, pain medications prn. Trend troponin (2) Pneumonitis Status: Acute Plan: Trend CBC, Zithromax and Rocephin continuation, pending blood cultures. IS per respiratory, oxygen per protocol Plan to discharge in: 48 Hours - Advance Directives Does patient have a Living Will: No Does patient have a Durable POA for Healthcare: No - Code Status/Comfort Care Code Status Assessed: Yes Code Status: Full Code Time Spent Managing Pts Care (In Minutes): 70
[2022-03-28] MEDS ORDERED: IBUPROFEN 600 MG TAB PO SCH (09:00)
[2022-03-28] MEDS: ASPIRIN 325 MG TAB PO SCH (09:25)
[2022-03-28] MEDS: AMOX/K CLAV 500 MG TAB PO SCH ×2 (10:17→21:54)
[2022-03-28] MEDS: COLCHICINE 0.6 MG TAB PO SCH ×2 (10:18→21:54)
--- NOTE | 2022-03-28 12:05 | P.CNS ---
Date of Consult: 03/28/22 Reason for Consult: Chest pain abnormal CT scan Chief Complaint: Left-sided pleuritic chest pain History of Present Illness: Patient is 21 years of age previously healthy woke up with sudden onset of left- sided anterior chest pain radiating to the back improved by leaning forward described as a pleural pleuritic severe does have a history of asthma is not on any control pills had an infiltrate in the right side of the lung Allergies No Known Allergies Allergy (Unverified 03/27/22 11:02) Home Medications: Levothyroxine [Synthroid*] 0.05 mg PO DAILY 03/27/22 - Past Medical/Surgical History Diabetic: No -: Hypothyroidism -: exercise induced asthma - Family History Mother History Unknown: Yes Medical History: Heart disease Notes: Stemi, cardiac arrest 2019, CAD, CHF, COPD, HLD, melanoma, hype rthyroidism Father History Unknown: Yes Medical History: Cancer - Social History Alcohol use: No CD- Drugs: No Caffeine use: Yes Place of Residence: Home Review of Systems 10-point ROS is otherwise unremarkable Physical Examination Temp Pulse Resp BP Pulse Ox 96.9 F 62 15 117/56 L 98 03/28/22 08:00 03/28/22 08:00 03/28/22 10:17 03/28/22 08:00 03/28/22 10:17 General: Alert, In no apparent distress, Oriented x3 HEENT: Atraumatic Neck: Supple Respiratory: Clear to auscultation bilaterally Cardiovascular: No edema, Regular rate/rhythm, Normal S1 S2 Gastrointestinal: Normal bowel sounds, Soft and benign - Problems (1) Pleuritic chest pain Current Visit: No Status: Acute Plan: Patient is 21 years of age admitted with acute onset of pleuritic chest pain CT scan is abnormal appears that patient has bilateral patchy infiltrates most likely pneumonia recommend p.o. Augmentin have underlying element of pericarditis add some Motrin vital signs oxygenation satisfactory white count is normal procalcitonin level is negative troponins are elevated again probably from underlying myocarditis I have added colchicine still continues to have problem we will consider some steroid echocardiogram pending
[2022-03-28] MEDS: AZITHROMYCIN 250 MG TAB PO SCH (12:33)
--- NOTE | 2022-03-28 14:34 | ECHO ---
HEIGHT: 5 ft 8 in WEIGHT: 225 lb 0 oz DATE OF STUDY: 03/28/[address]: Mónica Thomas GROUNDS MAINTENANCE MANAGER-BC 2-DIMENSIONAL: YES M.MODE: YES DOPPLER: YES COLOR FLOW: YES TDS: YES PORTABLE: DEFINITY: BUBBLE STUDY: DIAGNOSIS: NON ST ELEVATION MYOCARDIAL INFARCTION CARDIAC HISTORY: CATHERIZATION: NO SURGERY: NO PROSTHETIC VALVE: NO PACEMAKER: NO MEASUREMENTS (cm) DIASTOLIC (NORMALS) SYSTOLIC (NORMALS) IVSd 0.6 (0.6-1.2) LA Diam 3.2 (1.9-4.0) LVEF 57% LVIDd 4.8 (3.5-5.7) LVIDs 3.3 (2.0-3.5) %FS 30% LVPWd 0.9 (0.6-1.2) Ao Diam 2.2 (2.0-3.7) 2 DIMENSIONAL ASSESSMENT: RIGHT ATRIUM: NORMAL LEFT ATRIUM: NORMAL RIGHT VENTRICLE: NORMAL LEFT VENTRICLE: NORMAL TRICUSPID VALVE: NORMAL MITRAL VALVE: NORMAL PULMONIC VALVE: NORMAL AORTIC VALVE: NORMAL PERICARDIAL EFFUSION: NONE AORTIC ROOT: NORMAL LEFT VENTRICULAR WALL MOTION: NORMAL DOPPLER/COLOR FLOW: SEE BELOW COMMENTS: 1. NORMAL LEFT VENTRICULAR EJECTION FRACTION 55-60% 2. NORMAL WALL MOTION 3. NORMAL DIASTOLIC FUNCTION 4. MILD PULMONIC INSUFFICIENCY 5. TRACE TRICUSPID REGURGITATION TECHNOLOGIST: MARUA JOHN
--- NOTE | 2022-03-28 16:29 | EKG ---
Test Date: 2022-03-27 Test Time: 08:49:50 Warranty Manager: DELIO MEASUREMENT RESULTS: Intervals: Rate: 91 [place]: 138 QRSD: 68 QT: 316 QTc: 388 [place]: P: 66 [place]: 138 QRS: 43 T: 65 INTERPRETIVE STATEMENTS: Normal sinus rhythm Possible Left atrial enlargement Cannot rule out Anterior infarct, age undetermined Abnormal ECG No previous ECG available for comparison Electronically Signed On 03-28-22 16:27:06 HIDE SHAKER by Daren Miles
--- NOTE | 2022-03-28 20:37 | PN ---
Date of Progress Note: 03/28/2022 Subjective: Seen by bedside. She is doing well. Does not have any chest pain. Her chest pain has improved significantly and troponin is trending down. Review of Systems: No resting chest pain. No shortness of breath, orthopnea, cough, nausea, vomiting, or diarrhea. All other systems reviewed and they were negative. Physical Examination: Vital Signs: Temperature is 97.4, pulse 71, breathing at 16, blood pressure 122/62, saturating 100% on room air. General: Pleasant young female, no apparent distress. Head and Neck: Pupils are equal, reactive to light. Intact eye movements. No JVD. No cervical lym phadenopathy. Neck: Supple. Thyroid is not enlarged. Lungs: Clear to auscultation bilaterally. No rhonchi, wheezing, or crackles. No accessory muscle u se. Heart: Regular rate and rhythm. No extra sounds. Abdomen: Soft, nontender. Bowel sounds positive. No organomegaly. No masses or hernia. No rigidi ty or rebound. Extremities: No edema, clubbing, or cyanosis. Intact pulses. Skin: No rashes. Neurologic: Alert, awake, and oriented x3. No acute focal deficits appreciated. Investigations: Echo was normal, normal systolic and diastolic function. Troponin trending down, la st was 265, and CRP was 25. Assessment And Recommendation: 1.Chest pain with positive troponin. This is likely an infectious process, specifically viral with probably mild case of perimyocarditis. Echo showed normal ejection fraction. Patient can be treated with colchicine 0.6 mg twice a day and alternating with NSAIDs, ibuprofen 600 mg q.8 hours and I yevgeniy l plan for doing a stress test as an outpatient. From Cardiology standpoint, patient can be released and follow up with me as an outpatient in 4 weeks. 2.Elevated troponin. This is likely due to the infectious process that is going on as outlined jose leal SR/KINJAL Voice ID: [id number] Report ID: [id number]
[2022-03-28] MEDS ORDERED: HYDROCODONE/APAP 5/325 MG TAB PO PRN (22:42)
[2022-03-29 01:43] VITALS: O2SAT 99
[2022-03-29 05:44] LABS: Hematocrit 37.5 % (36.0-45.0); MCV 92.7 fL (80-100); MPV 8.6 fL (7.6-11.3); RBC Red Blood Cell Count 4.04 M/uL (3.86-4.86)
[2022-03-29 06:01] LABS: C-Reactive Protein 25.4 mg/L (<3.00); Potassium 3.7 mmol/L (3.5-5.1)
[2022-03-29] MEDS: AMOX/K CLAV 500 MG TAB PO SCH (07:44)
[2022-03-29] MEDS: COLCHICINE 0.6 MG TAB PO SCH (07:44)
[2022-03-29] MEDS: AZITHROMYCIN 250 MG TAB PO SCH (07:44)
[2022-03-29] MEDS: ASPIRIN 325 MG TAB PO SCH (07:44)
--- NOTE | 2022-03-29 08:05 | P.DS ---
Admission Date: 03/27/22 Discharge Date: 03/29/22 Disposition: ROUTINE DISCHARGE Discharge Condition: FAIR Reason for Admission: Left-sided pleuritic chest pain Brief History of Present Illness: Ms. Patel is a 21 yo female with no significant medical history presented to the emergency department with a complaint of chest pain that woke her up in the morning. Patient described left-sided chest pain, sharp in nature, worse with inspiration. Pt was afebrile, denies cough. She stated her boyfriend had fever for 6 days but was negative for flu or covid. Work-up in the ED was unremarkable except elevated troponin. Patient was hospitalized for further management. Hospital Course: Diagnosis Chest pain-pleuritic NSTEMI, suspect type II Hypothyroidism Patient admitted to the medical floor trop was elevated, fluctuating but overall trended flat. EKG without acute changes, no ST-t wave abnormalities. Patient seen by cardiology. Elevated troponin deemed secondary to infection. No ACS. Pericarditis/myocarditis possible. She was treated with colchicine, aspirin and ibuprofen which helped her symptoms. echo done is unremarkable, grossly normal. Multiple pulm nodules seen on CT. This could also be contributing to her her pleurisy nonspecific possibly infectious vs inflammatory / connective tissue disorder patient vapes - but reports minimal use - 1 cartridge / vape pen can last a year or so. Patient treated with antibiotics. She is deemed stable for discharge. She is prescribed Augmentin, Zithromax for infectious process, colchicine and ibuprofen for possible pericarditis. She will need repeat chest CT to follow-up the pulmonary nodules. Vital Signs/Physical Exam: Temp Pulse Resp BP Pulse Ox 96.9 F 56 18 115/59 L 99 03/29/22 04:00 03/29/22 04:00 03/29/22 04:00 03/29/22 04:00 03/29/22 04:00 General: Alert, In no apparent distress, Oriented x3 HEENT: Mucous membr. moist/pink Respiratory: Clear to auscultation bilaterally, Normal air movement Cardiovascular: No edema, Regular rate/rhythm, Normal S1 S2 Gastrointestinal: Soft and benign, Non-distended, No tenderness Musculoskeletal: No clubbing, No tenderness Integumentary: No rashes, No cyanosis Neurological: Normal strength at 5/5 x4 extr Laboratory Data at Discharge: WBC 6.90 K/uL (4.3-10.9) 03/29/22 05:26 Hgb 12.6 g/dL (12.0-15.0) 03/29/22 05:26 Hct 37.5 % (36.0-45.0) 03/29/22 05:26 Plt Count 231 K/uL (152-406) 03/29/22 05:26 Sodium 139 mmol/L (136-145) 03/29/22 05:26 Potassium 3.7 mmol/L (3.5-5.1) 03/29/22 05:26 BUN 10 mg/dL (7-18) 03/29/22 05:26 Creatinine 0.63 mg/dL (0.55-1.02) 03/29/22 05:26 Glucose 104 mg/dL (74-106) 03/29/22 05:26 Magnesium 2.0 mg/dL (1.6-2.4) 03/29/22 05:26 Home Medications: Levothyroxine [Synthroid*] 0.05 mg PO DAILY 03/27/22 Amox/Clavulanate [Augmentin 500-125 mg Tab*] 500 mg PO BID #14 tab 03/29/22 Aspirin Tab [Nigel Aspirin*] 325 mg PO DAILY #30 tab 03/29/22 Azithromycin Tab [Zithromax*] 500 mg PO DAILY #8 tab 03/29/22 Colchicine [Colcrys *] 0.6 mg PO BID #14 tab 03/29/22 Ibuprofen [Motrin] 600 mg PO Q8HP #30 tab 03/29/22 New Medications: Ibuprofen [Motrin] 600 mg PO Q8HP #30 tab Amox/Clavulanate [Augmentin 500-125 mg Tab*] 500 mg PO BID #14 tab Aspirin Tab [Nigel Aspirin*] 325 mg PO DAILY #30 tab Colchicine [Colcrys *] 0.6 mg PO BID #14 tab Azithromycin Tab [Zithromax*] 500 mg PO DAILY #8 tab Diet: AHA Activity: Ad stacey Followup: Dimas Beltran DO [Primary Care Provider] - 1 Week Daren Miles MD [ACTIVE - CAN ADMIT] - (within 4 weeks.)
[2022-03-29 08:10] VITALS: BP 119/59; TEMP 96.8
== END 2022-03-29 08:58 | disposition home or self-care (01) | DRG 280 ==
LOC: ER 08:37 → ERHOLD 11:58 → 4TH 13:21
PROVIDERS: ADMIT Hospitalist; ATTEND Internal Medicine
DX: I31.9 Disease of pericardium, unspecified (principal); I21.A1 Myocardial infarction type 2; J18.9 Pneumonia, unspecified organism; I51.4 Myocarditis, unspecified; E03.9 Hypothyroidism, unspecified; E87.6 Hypokalemia; R91.8 Other nonspecific abnormal finding of lung field; Z79.890 Hormone replacement therapy; Z79.82 Long term (current) use of aspirin; Z79.899 Other long term (current) drug therapy; Z20.822 Contact with and (suspected) exposure to COVID-19
CPT/HCPCS: 0240U; 36415; 71045; 71275; 80048; 82550; 82728; 83605; 83735; 83880; 84145; 84443; 84484; 85025; 85027; 85379; 86140; 87040; 93005; 93306; 94760; 99285; J0456; J7030; J7050; Q0144; Q9967